=== PATIENT | male | born 1965 | race Caucasian/White ===

== ENCOUNTER 2016-10-29 17:05 | Emergency (ER) | payer SELFPAY ==
[2016-10-29 17:13] VITALS: BP 135/71; PULSE 65; TEMP 98.4; BMI 26.4
[2016-10-29] MEDS ORDERED: FAMOTIDINE 20 MG/50 ML IVPB 20 MG in PREMIX 50 IVPB ONE (17:25)
[2016-10-29] MEDS ORDERED: ONDANSETRON 4 MG/2 ML VIAL IVPB ONE (17:25)
[2016-10-29] MEDS ORDERED: SODIUM CHLORIDE 1,000 ML IV ONE (17:25)
--- NOTE | 2016-10-29 17:25 | PDOC ---
History of Present Illness - History of Present Illness Initial Comments: 10/29/16 19:04 51 y/o M with a PMHx of hypercholesterolemia presents to the ED with abdominal pain and diarrhea since yesterday. Patient reports he ate suspicious meat at a cookout 2 days ago. Since then he reports 15 episodes of diarrhea. He reports his pain an 8/10 with relief with bowel movements. He reports associated weakness, chills and 2 episodes of vomiting. His ate the same food and has similar symptoms. He denies bloody stool. He denies urinary complaints. Denies fever, headache, dizziness. Denies pain, SOB. SHx: Tobacco use (1 pack/day for 27 years) <Lakisha Avila - Last Filed: 10/29/16 19:04> <Jhon Briseno - Last Filed: 11/01/16 07:19> - General Chief Complaint: Pain Stated Complaint: Abdominal pain Time Seen by Provider: 10/29/16 17:08 Past History <Lakisha Avila - Last Filed: 10/29/16 19:04> - Past Medical History Hypercholesterolemia: Yes (Triglyceridemia) - Reproductive History Testicular Surgery: No - Psycho/Social/Smoking Cessation Hx Anxiety: No Suicidal Ideation: No Smoking History: Current every day smoker Have you smoked in the past 12 months: Yes Number of Cigarettes Smoked Daily: 20 Information on smoking cessation initiated: No 'Breaking Loose' booklet given: 01/16/14 Hx Alcohol Use: No Drug/Substance Use Hx: No Substance Use Type: Heroin Hx Substance Use Treatment: No <Jhon Briseno - Last Filed: 11/01/16 07:19> - Past Medical History Allergies/Adverse Reactions: Allergies Allergy/AdvReac Type Severity Reaction Status Date / Time No Known Allergies Allergy Verified 10/29/16 17:07 Home Medications: Ambulatory Orders NK [No Known Home Medication] 10/29/16 Review of Systems - Review of Systems Comments:: 10/29/16 19:04 CONSTITUTIONAL: Present: chills, Generalized Weakness No reported: Fever, Diaphoresis, Malaise, Loss of Appetite HEENT: No reported: Rhinorrhea, Nasal Congestion, Throat Pain, Throat Swelling, Difficulty Swallowing, Mouth Swelling, Ear Pain, Eye Pain, Visual Changes CARDIOVASCULAR: No reported: Chest Pain, Syncope, Palpitations, Irregular Heart Rate, Lightheadedness, Peripheral Edema RESPIRATORY: No reported: Cough, Shortness of Breath, SOB with Exertion, Orthopnea, Wheezing , Stridor, Hemoptysis GASTROINTESTINAL: Present: abdominal pain, diarrhea, vomiting No reported: Abdominal Distension, Constipation, Melena, Hematochezia GENITOURINARY: No reported: Dysuria, Frequency, Urgency, Hesitancy, Flank Pain, Genital Pain MUSCULOSKELETAL: No reported: Myalgia, Arthralgia, Joint Swelling, Back pain, Neck Pain SKIN: No reported: Rash, Itching, Pallor HEMATOLOGIC/IMMUNOLOGIC: No reported: Easy Bleeding, Easy Bruising, Lymphadenopathy, Frequent infections ENDOCRINE: No reported: Unexplained Weight Gain, Unexplained Weight Loss, Heat Intolerance , Cold Intolerance NEUROLOGIC: No reported: Headache, Focal Weakness, Paresthesias, Vertigo, Lightheadedness, Unsteady Gait, Seizure, Mental Status Changes, Incontinence PSYCHIATRIC: No reported: Anxiety, Depression <Lakisha Avila - Last Filed: 10/29/16 19:04> *Physical Exam - Vital Signs Last Vital Signs Temp Pulse Resp BP Pulse Ox 98.4 F 65 16 135/71 99 10/29/16 17:08 10/29/16 17:08 10/29/16 17:08 10/29/16 17:08 10/29/16 17:08 - Physical Exam Comments: 10/29/16 19:04 GENERAL: The patient is awake, alert, and fully oriented, Nontoxic - in no acute distress. HEAD: Normocephalic, atraumatic. EYES: extraocular movements intact, sclera anicteric, conjunctiva clear. ENT: Normal voice, Moist mucous membranes. NECK: Normal range of motion, No JVD LUNGS: Breath sounds equal, clear to auscultation bilaterally. No wheezes, no rhonchi, no rales. HEART: Regular rate and rhythm, normal S1 and S2 without murmur, rub or gallop. ABDOMEN: Soft, nontender, normoactive bowel sounds. No guarding, no rebound. No masses. No CVA tenderness EXTREMITIES: Normal range of motion, no edema. No clubbing or cyanosis. No cords , erythema, or tenderness. NEUROLOGICAL: No facial asymmetry, Normal speech, normal gait. PSYCH: Normal mood, normal affect. SKIN: Warm, Dry, normal turgor <Lakisha Avila - Last Filed: 10/29/16 19:04> - Vital Signs Last Vital Signs Temp Pulse Resp BP Pulse Ox 98.4 F 65 16 135/71 99 10/29/16 17:08 10/29/16 17:08 10/29/16 17:08 10/29/16 17:08 10/29/16 17:08 <Jhon Briseno - Last Filed: 11/01/16 07:19> ED Treatment Course - LABORATORY CBC & Chemistry Diagram: 10/29/16 17:30 10/29/16 17:30 - ADDITIONAL ORDERS Additional order review: Laboratory Results 10/29/16 17:30 Sodium 137 Potassium 4.2 Chloride 102 Carbon Dioxide 28 Anion Gap 7 L BUN 19 H Creatinine 0.9 Creat Clearance w eGFR > 60 Random Glucose 97 Calcium 9.3 Total Bilirubin 0.3 AST 22 ALT 12 Alkaline Phosphatase 64 Total Protein 7.5 Albumin 4.1 Lipase 21 L 10/29/16 17:30 RBC 4.59 MCV 85.9 MCHC 34.0 RDW 13.2 MPV 6.9 L Neutrophils % 50.3 Lymphocytes % 36.4 Monocytes % 11.4 H Eosinophils % 1.7 Basophils % 0.2 - Medications Given in the ED: ED Medications Discontinued Medications Generic Name Dose Route Start Last Admin Trade Name Yasmany PRN Reason Stop Dose Admin Famotidine/Sodium Chloride 20 50 mls @ 100 mls/hr 10/29/16 17:25 10/29/16 17:47 mg/ Miscellaneous IVPB 10/29/16 17:54 100 mls/hr ONCE ONE Administration Sodium Chloride 1,000 mls @ 1,000 mls/hr 10/29/16 17:25 10/29/16 17:47 Normal Saline - IV 10/29/16 18:24 1,000 mls/hr .Q1H ONE Administration Ondansetron HCl 4 mg 10/29/16 17:25 10/29/16 17:47 Zofran Injection IVPB 10/29/16 17:26 4 mg ONCE ONE Administration <Lakisha Avila - Last Filed: 10/29/16 19:04> - LABORATORY CBC & Chemistry Diagram: 10/29/16 17:30 10/29/16 17:30 <Jhon Briseno - Last Filed: 11/01/16 07:19> Medical Decision Making - Medical Decision Making 10/29/16 18:57 51y M presenting with crampy abdominal pain associated with multiple episoes of watery stool, with 2 episodes of vomiting, w/o associated fever/chills,. melena, b pr on exam the pt appears well in n odistress, mildly dry mm on arrival but improved since hydration pts labs unremarakble awaiting UA will PO challenge the pt anticipate dc with pmd fu I discussed the physical exam findings, ancillary test results and final diagnoses with the patient. I answered all of the patient's questions. The patient was satisfied with the care received and felt comfortable with the discharge plan and treatment plan. The patient will call their primary care physician within 24 hours to arrange follow-up and will return to the Emergency Department with any new, persistent or worsening symptoms. <Jhon Briseno - Last Filed: 11/01/16 07:19> *DC/Admit/Observation/Transfer - Attestations Scribe Attestion: 10/29/16 19:04 Documentation prepared by Lakisha Avila, acting as medical delivery driver for Jhon Briseno MD. <Lakisha Avila - Last Filed: 10/29/16 19:04> - Discharge Dispostion Admit: No <Jhon Briseno - Last Filed: 11/01/16 07:19> Diagnosis at time of Disposition: Diarrhea Qualifiers: Diarrhea type: unspecified type Qualified Code(s): R19.7 - Diarrhea, unspecified - Discharge Dispostion Disposition: HOME Condition at time of disposition: Improved - Referrals Referrals: [facility] [Provider Group] - Patient Instructions Printed Discharge Instructions: DI for Diarrhea and Traveler's Diarrhea -- Adult Additional Instructions: Return to the emergency department immediately with ANY new, persistent or worsening symptoms including worsening abdominal pain, fevers, inability to tolerate oral intake, chest pain, shortness of breath or any other concerns. Stay well hydrated. You MUST call and follow up with your doctor tomorrow. Your emergency department visit is not complete without a followup with your doctor for reevaluation. Please make sure your doctor reviews the results of your emergency evaluation. Print Language: SINGAPOREAN - Post Discharge Activity Work/School Note: Back to Work
[2016-10-29] MEDS ORDERED: ONDANSETRON 4 MG/2 ML VIAL ONE (17:37)
[2016-10-29] MEDS ORDERED: FAMOTIDINE 20 MG/50 ML IVPB 50 ML IVPB ONE (17:37)
[2016-10-29 17:52] LABS: BASOPHIL 0.2 % (0-2.0); EOSINOPHIL 1.7 % (0-4.5); MCH 29.3 pg (25.7-33.7); MEAN CELL VOLUME 85.9 fl (80-96); MEAN PLT VOLUME 6.9 fl (7.5-11.1); NEUTROPHILS 50.3 % (42.8-82.8); PLATELET COUNT 304 K/MM3 (134-434); RDW 13.2 % (11.9-15.9); WHITE BLOOD COUNT 7.3 K/mm3 (4.0-10.8)
[2016-10-29 18:06] LABS: ALBUMIN 4.1 g/dl (3.5-5.0); ALK PHOS 64 U/L (32-92); ANION GAP 7 (8-16); BILIRUBIN,TOTAL 0.3 mg/dl (0.2-1.0); CALCIUM 9.3 mg/dl (8.4-10.2); CO2 28 mmol/L (22-28); CREATININE 0.9 mg/dl (0.6-1.3); GLUCOSE,RANDOM 97 mg/dl (74-106); SGOT/AST 22 U/L (10-42); SGPT/ALT 12 U/L (10-40); TOT PROT 7.5 g/dl (6.4-8.3)
[2016-10-29 19:26] LABS: PH,URINE 5.5 (4.5-8); URINE APPEARANCE Clear; URINE BILIRUBIN Negative (NEGATIVE); URINE BLOOD Trace-intact (NEGATIVE); URINE COLOR YELLOW; URINE GLUCOSE (UA) Negative (NEGATIVE); URINE KETONE Trace (NEGATIVE); URINE LEUK ESTERASE Negative (NEGATIVE); URINE NITRITE Negative (NEGATIVE); URINE PROTEIN Negative (NEGATIVE); URINE UROBILINOGEN 0.2 (0.2-1.0)
[2016-10-29 23:35] LABS: URINE WBC 0-1 (3-5)
== END 2016-10-29 19:35 | disposition home or self-care (01) ==
LOC: FER 17:05
PROC: 3E033GC Introduction of Other Therapeutic Substance into Peripheral Vein, Percutaneous Approach (ICD-10-PCS; principal; 2016-10-29)
PROC: 3E0337Z Introduction of Electrolytic and Water Balance Substance into Peripheral Vein, Percutaneous Approach (ICD-10-PCS; 2016-10-29)
DX: R19.7 Diarrhea, unspecified (principal)
CPT/HCPCS: 36415; 80053; 81003; 81015; 83690; 85025; 99284-25

== ENCOUNTER 2018-08-13 11:10 | Emergency (ER) | payer SELFPAY ==
[2018-08-13 11:18] VITALS: BP 144/86; PULSE 86; BMI 26.4
[2018-08-13] MEDS ORDERED: METHOCARBAMOL 500 MG TABLET PO ONE (11:28)
[2018-08-13] MEDS ORDERED: LIDOCAINE 5% TOPICAL PATCH TP ONE (11:28)
[2018-08-13] MEDS ORDERED: NAPROXEN 500 MG TABLET (FP) PO ONE (11:28)
--- NOTE | 2018-08-13 11:35 | PDOC ---
History of Present Illness - General Chief Complaint: Injury Stated Complaint: BACK PAIN Time Seen by Provider: 08/13/18 11:12 History Source: Patient Exam Limitations: No Limitations - History of Present Illness Initial Comments: 08/13/18 11:30 Mr. Britton is a 53 yo M who presents to the ER with a complaint of "back pain". 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 Pt was moving railings that are 16ft long and 300+pounds. He went around a corner and noted right sided back pain. He then had to put down the railing and his reproductive healthcare assistant dropped it before he dropped his end. He said that when the railing hit the floor, it shook violently and caused him more pain He told his boss and was unable to continue working that day He took a day off and returned to work Yesterday, he picked up a 200 pound beam and again noted a recurrence of his pain He took Tylenol for pain yesterday, nothing today No bowel or bladder incontinence No radiation of his pain Pain is described as sharp/tight, rated 10/10, no radiation to the legs, pt does note radiation of pain anteriorly He notes worsening of his pain when bending forward, twisting, standing He feels like his back is stiff Denies: History of known trauma, fevers without source, weakness, tingling, loss of sensation or bladder or bowel incontinence. Pt denies history of pain worse at night, h/o DM or Renal Failure. Pt denies history of IVDU, recurrent systemic infections, immunosuppression. Pt denies recent spinal fracture/ procedure. ROS: GENERAL/CONSTITUTIONAL: No: fever, chills, weakness, loss of appetite. HEAD, EYES, EARS, NOSE AND THROAT: No: change in vision, ear pain, discharge, sore throat, throat swelling. CARDIOVASCULAR: No: chest pain, lightheadedness, palpitations, syncope RESPIRATORY: No: cough, shortness of breath, wheezing, hemoptysis, stridor. GASTROINTESTINAL: No: nausea, vomiting, diarrhea, abdominal cramping, rectal bleeding, constipation. GENITOURINARY: No: dysuria, hematuria, frequency, urgency, flank pain. MUSCULOSKELETAL: No: back pain, neck pain, joint pain, muscle swelling or pain SKIN AND BREASTS: No: lesions, pallor, rash or easy bruising. NEUROLOGIC: No: headache, vertigo, paresthesias, weakness ENDOCRINE: No: unexplained weight gain or loss HEMATOLOGIC/LYMPHATIC: No: anemia, easy bleeding, swelling nodes. PHYSICAL EXAM General: A&O x3 appearing in [No acute, mild, moderate, severe, anxiety induced ] Skin: [w/o signs of trauma, ecchymosis at pain site] HEENT: PERRLA Neck: Supple, firm, FROM, NT Respiratory: CTA w/o W/R/R B/L Cardiac: RRR, w/o M/R/G GI: NT/ND, NL bowel sounds Back is symmetrical, straight. Pt is not able to bend forward. No tenderness appreciated to vertebrae. No step-offs. No deformities appreciated. There is no CVA tenderness appreciated bilaterally. The patient pad right lumbar paravertebral muscle tenderness. Musculoskeletal: The patient has full range of motion of lower extremities bilaterally. Straight leg raise is intact and equal bilaterally. Dorsiflexion and plantar flexion are intact of the bilateral lower extremities bilaterally. Sensation is intact throughout the distal feet. Neurologic: The patient is awake, alert, oriented x3. Gross motor and sensory exam is found to be intact. Muscle strength is 5/5 lower extremities bilaterally (L4,L5, S1). Crossing right leg over left limited due to painSensation intact throughout (L4, L5, S1). pain with dorsi and plantar flexion 08/13/18 11:37 08/13/18 12:23 Past History - Past Medical History Allergies/Adverse Reactions: Allergies Allergy/AdvReac Type Severity Reaction Status Date / Time No Known Allergies Allergy Verified 08/13/18 11:12 Home Medications: Ambulatory Orders Lidocaine 5% Patch [Lidoderm Patch -] 1 patch TP DAILY PRN #30 patch 08/13/18 Lidocaine 5% Patch [Lidoderm Patch -] 1 patch TP DAILY PRN #30 patch 08/13/18 Methocarbamol [Robaxin -] 500 mg PO TID PRN #30 tablet 08/13/18 Methylprednisolone [Medrol Dose William] 4 mg PO ASDIR #21 tablet 08/13/18 Naproxen [Naprosyn -] 500 mg PO BID PRN #14 tablet 08/13/18 Oxycodone HCl/Acetaminophen [Percocet 5-325 mg Tablet] 1 tab PO BID PRN #10 tablet MDD 2 08/13/18 COPD: No Hypercholesterolemia: Yes - Reproductive History Testicular Surgery: No - Suicide/Smoking/Psychosocial Hx Smoking History: Current every day smoker Have you smoked in the past 12 months: Yes Number of Cigarettes Smoked Daily: 10 Information on smoking cessation initiated: Yes 'Breaking Loose' booklet given: 01/16/14 Hx Alcohol Use: No Drug/Substance Use Hx: No Substance Use Type: Heroin Hx Substance Use Treatment: No *Physical Exam - Vital Signs Last Vital Signs Temp Pulse Resp BP Pulse Ox 86 18 144/86 100 08/13/18 11:10 08/13/18 11:10 08/13/18 11:10 08/13/18 11:10 ED Treatment Course - LABORATORY CBC & Chemistry Diagram: 08/13/18 13:10 08/13/18 13:10 Medical Decision Making - Medical Decision Making 08/13/18 12:08 Laboratory Tests 08/13/18 11:45 Urine Nitrite Negative Ur Leukocyte Esterase Negative Urine RBC 5-10 Urine WBC 0-2 Pt with RBCs in urine Symptoms seem more consistent with back strain Will do spiral CT anyhow 08/13/18 13:05 CT - no stones, no hydronephrosis, CBD diliation (no stones seen), pancreatic ductal dilitation Will evaluate with US Pt does not have a PMD Will request that he follow up with resident clinic 08/13/18 14:12 Laboratory Tests 08/13/18 13:10 WBC 8.4 Hgb 13.3 Hct 40.3 Plt Count 299 08/13/18 14:50 Laboratory Tests 08/13/18 08/13/18 13:10 13:10 Sodium 136 Potassium 4.8 Chloride 99 Carbon Dioxide 28 BUN 14.0 Creatinine 0.9 Random Glucose 96 Lipase 82 Will discharge to home Pt asked to follow up with PMD Given copies of labs and US *DC/Admit/Observation/Transfer Diagnosis at time of Disposition: Common bile duct dilatation Disc herniation Qualifiers: Spinal region: lumbar Qualified Code(s): M51.26 - Other intervertebral disc displacement, lumbar region - Discharge Dispostion Disposition: HOME Condition at time of disposition: Stable Decision to Admit order: No - Prescriptions Prescriptions: Lidocaine 5% Patch [Lidoderm Patch -] 1 patch TP DAILY PRN #30 patch PRN Reason: Pain Lidocaine 5% Patch [Lidoderm Patch -] 1 patch TP DAILY PRN #30 patch PRN Reason: Pain Methocarbamol [Robaxin -] 500 mg PO TID PRN #30 tablet PRN Reason: Lower Back Pain Methylprednisolone [Medrol Dose William] 4 mg PO ASDIR #21 tablet Naproxen [Naprosyn -] 500 mg PO BID PRN #14 tablet PRN Reason: Pain Oxycodone HCl/Acetaminophen [Percocet 5-325 mg Tablet] 1 tab PO BID PRN #10 tablet MDD 2 PRN Reason: Severe Pain - Referrals Referrals: Bennie Hawk MD [Staff Physician] - Yulia Mann MD [Staff Physician] - Mayo Hammer MD [Staff Physician] - - Patient Instructions Printed Discharge Instructions: Back Pain (Alternative Therapy), DI for Low Back Pain, DI for Prescription Opioid Use - Post Discharge Activity Forms/Work/School Notes: Back to Work
[2018-08-13] MEDS ORDERED: METHOCARBAMOL 500 MG TABLET ONE (11:41)
[2018-08-13] MEDS ORDERED: LIDOCAINE 5% TOPICAL PATCH ONE (11:42)
[2018-08-13] MEDS ORDERED: NAPROXEN 500 MG TABLET (FP) ONE (11:42)
[2018-08-13 12:00] LABS: EPITHELIAL CELLS FEW /hpf; URINE MUCUS 2+
[2018-08-13 13:17] LABS: BASO % 0.3 % (0-2.0); EOS % 0.9 % (0-4.5); HEMATOCRIT 40.3 % (35.4-49); HEMOGLOBIN 13.3 GM/dl (11.7-16.9); LYMPH % 24.2 % (8-40); MCH 29.3 pg (25.7-33.7); MEAN CELL VOLUME 88.8 fl (80-96); MEAN PLT VOLUME 6.9 fl (7.5-11.1); MONO % 8.6 % (3.8-10.2); PLATELET COUNT 299 K/MM3 (134-434); RBC 4.53 M/mm3 (4.00-5.60); RDW 13.4 % (11.9-15.9); WHITE BLOOD COUNT 8.4 K/mm3 (4.0-10.8)
[2018-08-13 13:44] LABS: BILIRUBIN,TOTAL 0.6 mg/dl (0.2-1); CALCIUM 8.9 mg/dl (8.5-10); CREATININE 0.9 mg/dl (0.55-1.3); POTASSIUM 4.8 mmol/L (3.5-5.1); TOT PROT 7.9 g/dl (6.4-8.2)
[2018-08-13] MEDS ORDERED: LIDOCAINE PATCH REMOVAL MC SCH (22:00)
== END 2018-08-13 15:10 | disposition home or self-care (01) ==
LOC: FER 11:10
DX: M51.26 Other intervertebral disc displacement, lumbar region (principal); K83.8 Other specified diseases of biliary tract
CPT/HCPCS: 36415; 74176-TC; 76705-TC; 80053; 81003; 81015; 83690; 85025; 87086; 99283-25

== ENCOUNTER 2022-05-28 16:47 | Emergency (ER) | payer SELFPAY ==
[2022-05-28 17:01] VITALS: BP 112/66; PULSE 71; RESP 18; TEMP 98.2; BMI 21.7
[2022-05-28] MEDS ORDERED: LIDOCAINE 5% TOPICAL PATCH TP ONE ×2 (18:19)
[2022-05-28] MEDS ORDERED: LIDOCAINE 5% TOPICAL PATCH ONE (18:23)
[2022-05-28 19:42] LABS: BILIRUBIN,TOTAL 0.4 mg/dl (0.2-1); CALCIUM 8.9 mg/dl (8.5-10); CREATININE 0.9 mg/dl (0.55-1.3); TOT PROT 7.1 g/dl (6.4-8.2)
[2022-05-28 20:09] LABS: HEMOGLOBIN 12.2 GM/dL (11.7-16.9); MCH 29.1 pg (25.7-33.7); MEAN CELL VOLUME 85.6 fl (80-96); MEAN PLT VOLUME 7.3 fl (7.5-11.1); PLATELET COUNT 285 10^3/uL (134-434); RBC 4.21 M/mm3 (4.00-5.60); RDW 14.3 % (11.9-15.9); WHITE BLOOD COUNT 7.9 K/mm3 (4.0-10.0)
[2022-05-28] MEDS ORDERED: LIDOCAINE PATCH REMOVAL MC SCH ×2 (22:00)
== END 2022-05-28 20:31 | disposition home or self-care (01) ==
LOC: FER 16:47
DX: R07.89 Other chest pain (principal); R06.09 Other forms of dyspnea; R53.81 Other malaise
CPT/HCPCS: 0241U-QW; 36415; 71046-TC-FY; 80053; 84484; 85027; 93005; 99285-25

== ENCOUNTER 2022-08-06 10:14 | Emergency (ER) | payer SELFPAY ==
[2022-08-06 10:24] VITALS: BP 140/77; PULSE 62; RESP 18; TEMP 98.4; BMI 25.0
[2022-08-06] MEDS ORDERED: IBUPROFEN 600 MG TABLET (FP) PO ONE ×2 (10:28→10:38)
[2022-08-06] MEDS ORDERED: LIDOCAINE 5% TOPICAL PATCH TP ONE (10:28)
[2022-08-06] MEDS ORDERED: ACETAMINOPHEN 500 MG TABLET (FP) PO ONE (10:28)
[2022-08-06] MEDS ORDERED: ACETAMINOPHEN 500 MG TABLET (FP) ONE (10:38)
[2022-08-06] MEDS ORDERED: LIDOCAINE 5% TOPICAL PATCH ONE (10:38)
[2022-08-06] MEDS ORDERED: LIDOCAINE PATCH REMOVAL MC SCH (22:00)
== END 2022-08-06 11:03 | disposition home or self-care (01) ==
LOC: FER 10:14
DX: M54.2 Cervicalgia (principal); M54.6 Pain in thoracic spine; M62.838 Other muscle spasm
CPT/HCPCS: 99283-25